=== PATIENT | female | born 1965 | race Caucasian/White ===

== ENCOUNTER 2017-08-23 06:35 | Day surgery (SDC) | payer OTHER ==
[~2017-08-23 06:35] MED LIST: CALTRATE 600+D1 EAC1 PO; NORVASC2.5 MG PO; PAXIL20 MG PO; SYNTHROID100 MCG PO
[2017-08-23] MEDS ORDERED: PERCOCET 5-3251 EACH PO (11:36)
== END 2017-08-23 13:00 | disposition home or self-care (01) ==
LOC: CIR.AMB 06:35 → EDBD 06:35 → CIR.AMB 10:00
DX: N84.0 Polyp of corpus uteri (principal); N83.291 Other ovarian cyst, right side